=== PATIENT | female | born 1990 | race Caucasian/White ===

== ENCOUNTER 2022-01-29 19:21 | Emergency (ER) | payer OTHER ==
[~2022-01-29] VITALS: Ht 162.6 cm; Wt 59.0 kg
--- NOTE | 2022-01-29 19:57 | PHYS DOC ---
Past History Past Medical History cyclic vomiting, hyperkalemia Past Surgical History: Tonsillectomy, Tubal ligation, Other Additional Past Surgical Histo: THYROIDECTOMY General Adult EDM: Chief Complaint: ABDOMINAL PAIN HPI: HPI: ". I ve been hurting bad since Wednesday... can't stop vomiting.. I hurt all over my stomach... ".. " I get cyclic vomiting.. " Patient is a 31 year old female who presents with above hx and complaints of abdomen pain, , nausea and vomiti since Wednesday.. Patient does not follows with a primary care Dr. Currently. Patient denies any intake of bad food. No recent travel. No sick ill contacts. Patient did not get flu vaccination this season. Patient did not get COVID vaccinations. Denies any history immunosuppression. Denies any IV drug use. Does not smoke tobacco, but does smoke marijuana. Patient does have a history of allergy to penicillin and multiple anti-nausea meds. Patient does have history of prior evaluations at [facility] and [facility] for cyclic vomiting. Reportedly had a [address] [facility] dehydration, hypokalemia, hypo- thyroid and bacterial vaginosis. Patient is 4 and Hx. of marijuana induced hyperemesis syndrome. Review of Systems: Review of Systems: Constitutional: Denies fever or chills Eyes: Denies change in visual acuity HENT: Denies nasal congestion or sore throat Respiratory: Denies cough or shortness of breath Cardiovascular: Denies chest pain or edema GI: Generalized abdomen pain, nausea, vomiting,. Denies bloody stools or diarrhea : Denies dysuria Musculoskeletal: Denies back pain or joint pain Integument: Denies rash Neurologic: Denies headache, focal weakness or sensory changes Endocrine: Denies polyuria or polydipsia Lymphatic: Denies swollen glands Psychiatric: Denies depression or anxiety Family History: Family History: Family history noncontributory Current Medications: Current Meds: See nursing for home meds Allergies: Allergies: Allergies Coded Allergies Type Severity Reaction Last Updated Verified Penicillins Allergy Unknown 01/29/22 Yes metoclopramide Allergy Unknown 01/29/22 Yes prochlorperazine Allergy Unknown 01/29/22 Yes promethazine Allergy Unknown 01/29/22 Yes Physical Exam: PE: Constitutional: Moderate acute acute distress, non-toxic appearance. Dry heaving during ED admission HENT: Normocephalic, atraumatic, bilateral external ears normal, oropharynx dry, no oral exudates, nose normal. Eyes: PERRLA, EOMI, conjunctiva normal, no discharge. [] Neck: Normal range of motion, no tenderness, supple, no stridor. []Neck scar Cardiovascular:Heart rate regular rhythm, no murmur [] Lungs & Thorax: Bilateral breath sounds equal apex with scattered wheezes auscultation [] Abdomen: Bowel sounds creased, soft, generalized tenderness, no masses, no pulsatile masses. [] Some rebound to the left lower quadrant. Old surgery scars. Skin: Warm, dry, no erythema, no rash. Tattoos Back: No tenderness, some left sided lower CVA tenderness on percussion. Extremities: No tenderness, no cyanosis, no clubbing, ROM intact, no edema. [] Neurologic: Alert and oriented X 3, patient moves all extremities on request, does have distal sensory,, no focal deficits noted. [] Psychologic: Affect anxious, judgement normal, mood normal. [] Current Patient Data: Vital Signs: Vital Signs Date Time Temp Pulse Resp B/P (MAP) Pulse Ox O2 Delivery O2 Flow Rate FiO2 01/29/22 19:21 98.4 90 20 101/53 (69) 100 Room Air EKG: EKG: My interpretation EKG shows sinus rate of 85 bpm. Does have a short SD interval of less than 120 ms. He does have prolonged QT interval of 400 ms and QTc interval of 476. Time of EKG is 104 hours [] no significant U waves appreciated on ST segments. Radiology/Procedures: Radiology/Procedures: IMAGING REPORT Signed PATIENT: GIANNA WALDEN ACCOUNT: [id number] : 1990 LOCATION: ER AGE: 31 SEX: F EXAM STATUS: REG ER ORD. PHYSICIAN: JULIET HILARIO MD REASON: flank pain PROCEDURE: CT ABDOMEN PELVIS WO CONTRAST Exam: CT of abdomen and pelvis without contrast INDICATION: Flank pain, Back pain TECHNIQUE: Sequential axial images through the abdomen and pelvis obtained without IV contrast. Sagittal and coronal reformatted images were reconstructed from the axial data and reviewed. Exposure: One or more of the following in the visualized dose reduction techniques were utilized for this examination: 1. Automated exposure control 2. Adjustment of the MA and/or KV according to patient size 3. Use of iterative of reconstructive technique Comparisons: None FINDINGS: Heart size is normal. No pericardial effusion. Visualized lung bases are clear. No pleural effusion. Evaluation solid organs limited secondary to noncontrast technique. Liver, spleen, pancreas, gallbladder and adrenals are unremarkable. No perinephric inflammation or hydronephrosis. Nonobstructing right renal calculus noted. No ureteral calculi are identified. Bladder is partially distended and not well evaluated. Uterus is nonenlarged. No abnormal adnexal mass. Moderate amount of stool is noted throughout the colon. Appendix is normal. No free intra-abdominal air or fluid. No obstruction. Abdominal aorta has normal course and caliber. No enlarged intra-abdominal lymph nodes are identified. No suspicious osseous lesions or acute fractures. IMPRESSION: No acute process identified within the abdomen or pelvis. Electronically signed by: Holly Hurst MD (01/29/2022 11:39 PM) [facility] DICTATED AND SIGNED BY: HOLLY HURST MD DATE: 01/29/222331 CC: JULIET HILARIO MD; [address] ~ [][place] [address] IMAGING REPORT Signed PATIENT: GIANNA WALDEN ACCOUNT: [id number] : 1990 LOCATION: ER AGE: 31 SEX: F EXAM STATUS: REG ER ORD. PHYSICIAN: JULIET HILARIO MD REASON: pain PROCEDURE: ACUTE ABDOMEN SERIES EXAMINATION: XR ABDOMEN COMP ACUTE CLINICAL HISTORY: Abdominal/chest pain. EXAM DATE/TIME: 01/29/2022 8:40 PM COMPARISON: 08/29/2021 FINDINGS: Lines, Tubes, and Devices: None. Cardiomediastinal Silhouette: Within normal limits. Lungs and Pleura: Similar appearance of the right lower lung zone. No evidence of pleural effusion or pneumothorax. Bones and Soft Tissues: No acute osseous abnormality. Abdomen: Nonobstructive bowel gas pattern. No evidence of pneumoperitoneum or suspicious abdominal calcifications. IMPRESSION: Nonobstructive bowel gas pattern. No evidence of acute cardiopulmonary abnormality. Electronically signed by: Tate Rojas DO (01/29/2022 9:45 PM) [facility] DICTATED AND SIGNED BY: TATE ROJAS DO DATE: 01/29/222142 CC: JULIET HILARIO MD; [facility] ~ Heart Score: C/O Chest Pain: N/A HEART Score for Chest Pain: HEART Score for Chest Pain Response (Comments) Value History Slighlty/Non-Suspicious 0 ECG Normal 0 Age < 45 0 Risk Factors 1 or 2 Risk Factors 1 Troponin < Normal Limit 0 Total 1 Risk Factors: Risk Factors: DM, Current or recent (<one month) smoker, HTN, HLP, family history of CAD, obesity. Risk Scores: Score 0 - 3: 2.5% MACE over next 6 weeks - Discharge Home Score 4 - 6: 20.3% MACE over next 6 weeks - Admit for Clinical Observation Score 7 - 10: 72.7% MACE over next 6 weeks - Early Invasive Strategies Course & Med Decision Making: Course & Med Decision Making Pertinent Labs and Imaging studies reviewed. (See chart for details) Patient encouraged to push food juices. Patient encouraged to add a clear fluid diet the next 2 days. Patient follow-up with primary care. Patient take Zofran 8 mg up to 4 times a day for active vomiting. Patient to not take any solids or milk products for the next 2 days. Must allow bowel rest. Patient encouraged to avoid marijuana use in any form since this can induced marijuana hyperemesis syndrome, advised patient even smoking just 1 time per week can induce cyclic vomiting. Encourage patient to keep follow-up with GI. Patient may take Tylenol for pain. Take Pepcid 20 mg twice a day. Impression: 1. Abdomen Pain 2. Cyclic Vomiting 3. Critical Hypokalemia 2.9 4. Dehydration 5 Marijuana induced hyperemesis syndrome 6. Gastritis [] Dragon Disclaimer: Dragon Disclaimer: This electronic medical record was generated, in whole or in part, using a voice recognition dictation system. Departure Departure: Scripts Ondansetron (ONDANSETRON ODT) 4 Mg Tab.rapdis 8 MG PO QIDPRN PRN for NAUSEA/VOMITING, #30 TAB Prov: JULIET HILARIO MD 01/30/22 Famotidine (PEPCID) 20 Mg Tablet 20 MG PO BID for gerd, #60 TAB Prov: JULIET HILARIO MD 01/30/22 Eileen Disclaimer This chart was dictated in whole or in part using Voice Recognition software in a busy, high-work load, and often noisy Emergency Department environment. It may contain unintended and wholly unrecognized errors or omissions. JULIET HILARIO MD January 29, 2022 19:57
[2022-01-29] MEDS ORDERED: KETOROLAC 30 MG/ML VIAL. IVP ONE (20:30)
[2022-01-29] MEDS ORDERED: ONDANSETRON PF 4 MG/2 ML VIAL. IVP ONE (20:30)
[2022-01-29] MEDS ORDERED: FAMOTIDINE 20 MG/2 ML VIAL IVP ONE (20:30)
[2022-01-29] MEDS ORDERED: IV RINGERS SOLUTION,LACTATED 1,000 ML IV SCH (20:30)
[2022-01-29 20:43] LABS: BASO % 1 % (0-3); EOS # 0.1 x10^3/uL (0.0-0.7); EOS % 1 % (0-3); HEMATOCRIT 36.2 % (36.0-47.0); LYMPH % 20 % (24-48); MEAN CORPUSCULAR HEMOGLOBIN 28 pg (25-35); MEAN CORPUSCULAR HGB CONC 33 g/dL (31-37); MEAN CORPUSCULAR VOLUME 85 fL (79-100); MONO # 0.5 x10^3/uL (0.0-1.1); MONO % 10 % (0-9); NEUT # 3.4 x10^3uL (1.8-7.7); NEUT % 68 % (31-73); PLATELET COUNT 216 x10^3/uL (140-400); RED BLOOD COUNT 4.28 x10^6/uL (3.50-5.40); RED CELL DISTRIBUTION WIDTH 14.7 % (11.5-14.5)
[2022-01-29 20:53] LABS: ALBUMIN 3.9 g/dL (3.4-5.0); CALCIUM 8.7 mg/dL (8.5-10.1); CREATININE 0.7 mg/dL (0.6-1.0); DIRECT BILIRUBIN 0.2 mg/dL (0.0-0.2); GFR 98.9; TOTAL PROTEIN 6.1 g/dL (6.4-8.2)
[2022-01-29 21:03] LABS: POTASSIUM 2.9 mmol/L (3.5-5.1)
[2022-01-29] MEDS ORDERED: POTASSIUM CHLORIDE 20MEQ 100 ML IV SCH (21:15)
[2022-01-29] MEDS ORDERED: POTASSIUM CHLORIDE 20 MEQ TABLET.ER. PO ONE (21:15)
[2022-01-29] MEDS ORDERED: MORPHINE SULFATE 10 MG/ML SYRINGE. SQ ONE (21:15)
[2022-01-29] MEDS ORDERED: MORPHINE SULFATE 10 MG/ML SYRINGE. ONE (21:16)
--- NOTE | 2022-01-29 21:47 | RAD ---
EXAMINATION: XR ABDOMEN COMP ACUTE CLINICAL HISTORY: Abdominal/chest pain. EXAM DATE/TIME: 01/29/2022 8:40 PM COMPARISON: 08/29/2021 FINDINGS: Lines, Tubes, and Devices: None. Cardiomediastinal Silhouette: Within normal limits. Lungs and Pleura: Similar appearance of the right lower lung zone. No evidence of pleural effusion or pneumothorax. Bones and Soft Tissues: No acute osseous abnormality. Abdomen: Nonobstructive bowel gas pattern. No evidence of pneumoperitoneum or suspicious abdominal ca lcifications. IMPRESSION: Nonobstructive bowel gas pattern. No evidence of acute cardiopulmonary abnormality. Electronically signed by: Tate Mora DO (01/29/2022 9:45 PM) [facility]E
[2022-01-29 21:55] LABS: BARBITURATES NEG (NEG); BENZODIAZEPINES NEG (NEG); CANNABINOIDS POS (NEG); COCAINE NEG (NEG); METHADONE NEG (NEG); OPIATES NEG (NEG); PHENCYCLIDINE NEG (NEG)
[2022-01-29 21:56] LABS: AMPHETAMINE/METHAMPHETAMINE NEG (NEG)
[2022-01-29 21:59] LABS: BACTERIA,URINE 0 /HPF (0-FEW); CLARITY,URINE CLEAR; COLOR,URINE YELLOW; GLUCOSE,URINE NEG (NEG); NITRITE,URINE NEG (NEG); RBC,URINE 0 /HPF (0-2); SQUAMOUS EPITHELIAL CELL,UR OCC /LPF; UROBILINOGEN,URINE 0.2 mg/dL (0.2 mg/dL); WBC,URINE OCC /HPF (0-4)
--- NOTE | 2022-01-29 23:41 | RAD ---
Exam: CT of abdomen and pelvis without contrast INDICATION: Flank pain, Back pain TECHNIQUE: Sequential axial images through the abdomen and pelvis obtained without IV contrast. Sagit bethany and coronal reformatted images were reconstructed from the axial data and reviewed. Exposure: One or more of the following in the visualized dose reduction techniques were utilized for this examination: 1. Automated exposure control 2. Adjustment of the MA and/or KV according to patient size 3. Use of iterative of reconstructive technique Comparisons: None FINDINGS: Heart size is normal. No pericardial effusion. Visualized lung bases are clear. No pleural effusion. Evaluation solid organs limited secondary to noncontrast technique. Liver, spleen, pancreas, gallbladder and adrenals are unremarkable. No perinephric inflammation or hydronephrosis. Nonobstructing right renal calculus noted. No ureteral calculi are identified. Bladder is partially distended and not well evaluated. Uterus is nonenlarged. No abnormal adnexal mas s. Moderate amount of stool is noted throughout the colon. Appendix is normal. No free intra-abdominal a ir or fluid. No obstruction. Abdominal aorta has normal course and caliber. No enlarged intra-abdominal lymph nodes are identified. No suspicious osseous lesions or acute fractures. IMPRESSION: No acute process identified within the abdomen or pelvis. Electronically signed by: Holly Solitario MD (01/29/2022 11:39 PM) [facility]
[2022-01-30] MEDS ORDERED: ONDANSETRON PF 4 MG/2 ML VIAL. IVP ONE (01:00)
[2022-01-30] MEDS ORDERED: diphenhydrAMINE 50 MG/ML VIAL IV ONE (01:00)
[2022-01-30 01:28] VITALS: BP 98/56
[2022-01-30] MEDS ORDERED: FAMO-63 PO (01:57)
[2022-01-30] MEDS ORDERED: ONDA4TAB12 PO (01:57)
== END 2022-01-30 02:19 | disposition home or self-care (01) ==
LOC: ER 19:21
DX: E87.6 Hypokalemia (principal); E86.0 Dehydration; K29.70 Gastritis, unspecified, without bleeding; Z98.51 Tubal ligation status; Z88.0 Allergy status to penicillin; Z88.8 Allergy status to other drugs, medicaments and biological substances
CPT/HCPCS: 36415; 74022; 74176; 80048; 80076; 80307; 81001; 81025; 82550; 83690; 84484; 85025; 85610; 85730; 93005; 99285; J1200; J1885; J2270; J2405; J3480; J3490; J7120; 96361; 96365; 96372; 96375; 96376